=== PATIENT | male | born 1940 | race Caucasian/White ===

== ENCOUNTER 2024-09-26 07:52 | Emergency (ER) | payer MEDICARE ==
[2024-09-26 09:10] LABS: #Basophils 0.05 10x3/uL (0.0-0.2); %Basophils 0.4 % (0.0-1.0); %Lymphocytes 9.3 % (21.0-51.0); %Monocytes 6.7 % (0.0-10.0); %Neutrophils 78.1 % (42.0-75.0); Hematocrit 45.5 % (42.0-52.0); Hemoglobin 14.3 g/dL (14.0-18.0); Mean Corpuscular HGB CONC 31.4 g/dL (32.0-36.0); Mean Corpuscular Hemoglobin 29.6 pg (27.0-31.0); Mean Corpuscular Volume 94.2 fL (78.0-98.0); Mean Platelet Volume 11.7 fL (7.4-10.4); Platelet Count 199 10x3/uL (130-400); RBC Distribution Width 15.9 % (11.5-14.5); Red Blood Cell (RBC) Count 4.83 mill/uL (4.70-6.10)
[2024-09-26 09:23] LABS: ALT (SGPT) 21 U/L (8-55); AST (SGOT) 20 U/L (5-34); Albumin 3.4 g/dL (3.4-4.8); Alkaline Phosphatase 90 U/L (40-110); Anion Gap 12 mmol/L (10-20); BUN (Urea Nitrogen) 24 mg/dL (8.4-25.7); Bilirubin, Total 0.7 mg/dL (0.2-1.2); Calc. Creatinine Clearance 0 mL/min (70-130); Calcium 9.5 mg/dL (7.8-10.44); Carbon Dioxide 25 mmol/L (23-31); Chloride 108 mmol/L (98-107); Estimated GFR 79; Globulin 4.2 g/dL (2.4-3.5); Glucose 128 mg/dL (83-110); Potassium 4.6 mmol/L (3.5-5.1); Protein, Total 7.6 g/dL (5.8-8.1); Sodium 140 mmol/L (136-145)
[2024-09-26 09:27] LABS: PTT 29.5 sec (22.9-36.1)
[2024-09-26 09:28] LABS: Troponin I 0.056 ng/mL (< 0.028)
[2024-09-26] MEDS ORDERED: methylPREDNISolone Sod Succ/PF 125 MG/2 ML VIAL ONE (10:03)
[2024-09-26] MEDS ORDERED: Ipratropium/Albuterol 3 ML NEB ONE (10:12)
[2024-09-26] MEDS ORDERED: Iopamidol-370 76% 500 ML MDV (1 ML CHARGE) ONE (14:52)
== END 2024-09-26 12:32 | disposition home or self-care (01) ==
LOC: ERS 07:52
DX: J44.1 Chronic obstructive pulmonary disease with (acute) exacerbation (principal)
CPT/HCPCS: 71045; 71275; 80053; 83605; 83880; 84484; 85025; 85610; 85730; 87040; 87428; 93005; 94640; 94760; 96374; 99285; J2919; Q9967; J7620

== ENCOUNTER 2025-04-29 02:18 | Inpatient (IN) | payer MEDICARE ==
[2025-04-29 03:24] LABS: Actual Bicarbonate (HCO3v) 26.6 mEq/L (22-28); Base Excess 2.3 mEq/L (-2.0 to +3.0); Calcium, Ionized (venous) 1.04 mmol/L (1.16-1.32); Chloride (VBG) 104 mmol/L (98-106); Hematocrit-VBG 42 % (42.0-52.0); Hemoglobin (Hb) 14.2 g/dL (12.6-17.4); Potassium (VBG) 3.95 mmol/L (3.70-5.30); Sodium 139 mmol/L (133-146)
[2025-04-29 04:06] LABS: #Basophils Less than 0.03 10x3/uL (0.0-0.2); #Eosinophils 0.65 10x3/uL (0.0-0.7); #Monocytes 0.55 10x3/uL (0.11-0.59); #Neutrophils 8.13 10x3/uL (1.40-6.50); %Basophils 0.2 % (0.0-1.0); %Eosinophils 6.3 % (0.0-10.0); %Lymphocytes 8.0 % (21.0-51.0); %Monocytes 5.4 % (0.0-10.0); %Neutrophils 79.3 % (42.0-75.0); Hematocrit 40.4 % (42.0-52.0); Hemoglobin 12.7 g/dL (14.0-18.0); Mean Corpuscular Hemoglobin 28.4 pg (27.0-31.0); Mean Corpuscular Volume 90.4 fL (78.0-98.0); Platelet Count 114 10x3/uL (130-400); Red Blood Cell (RBC) Count 4.47 mill/uL (4.70-6.10); White Blood Cell (WBC) Count 10.25 10x3/uL (4.8-10.8)
[2025-04-29 04:19] LABS: ALT (SGPT) 50 U/L (Less than 45); AST (SGOT) 44 U/L (11-34); Albumin 3.1 g/dL (3.1-4.5); Alkaline Phosphatase 68 U/L (40-110); Anion Gap 13 mmol/L (10-20); BUN (Urea Nitrogen) 26 mg/dL (8.4-25.7); Bilirubin, Total 1.2 mg/dL (0.3-1.2); Calc. Creatinine Clearance 0 mL/min (70-130); Calcium 8.9 mg/dL (7.8-10.44); Carbon Dioxide 25 mmol/L (23-31); Chloride 107 mmol/L (98-107); Globulin 3.3 g/dL (2.4-3.5); Glucose 134 mg/dL (83-110); Magnesium 1.7 mg/dL (1.6-2.6); Potassium 4.0 mmol/L (3.5-5.1); Sodium 141 mmol/L (136-145)
[2025-04-29 04:45] LABS: Troponin I 0.207 ng/mL (< 0.028)
[2025-04-29] MEDS ORDERED: Ondansetron PF 4 MG/2 ML Vial IVP PRN (06:24)
[2025-04-29] MEDS ORDERED: Calcium Carbonate 500 MG ChewTAB PO PRN (06:24)
[2025-04-29] MEDS ORDERED: Electrolyte Replacement Protocol 1 EACH FS SCH (06:30)
[2025-04-29 06:36] LABS: Anisocytosis SLIGHT = 6-15 cells HPF (0-5); Macrocytosis SLIGHT = 6-15 cells HPF (0-5); Ovalocytes SLIGHT = 2-5 cells HPF (0-1); Platelet Adequacy Comment Platelets Decreased; Polychromasia SLIGHT = 2-3 cells HPF (0-2); Smudge Cells 3.0 %
[2025-04-29 07:11] LABS: Troponin I 0.215 ng/mL (< 0.028)
[2025-04-29 09:02] VITALS: BMI 25.9
[2025-04-29] MEDS: Magnesium 2 GM/50 ML(in water) 2 GM in Premix 1 BAG IVPB SCH (09:04)
[2025-04-29] MEDS: Propranolol 10 MG TAB PO SCH (11:11)
[2025-04-29] MEDS: Furosemide 20 MG (2 mL) VIAL SLOW IVP SCH (11:11)
[2025-04-29] MEDS: Lisinopril 20 MG TAB PO SCH (11:12)
[2025-04-29] MEDS ORDERED: Iopamidol-370 76% 500 ML MDV (1 ML CHARGE) ONE (11:12)
[2025-04-29] MEDS: Lisinopril 10 MG TAB PO SCH (15:18)
[2025-04-29] MEDS: Mometasone 100 MCG HFA INHALER (RT USE) INH SCH (19:42)
[2025-04-29] MEDS ORDERED: Propranolol 10 MG TAB PO SCH (21:00)
[2025-04-29] MEDS: CO Q-10 CAPSULE 100 MG PO SCH (22:05)
[2025-04-29] MEDS: Meloxicam 15 MG TAB PO SCH (22:05)
[2025-04-29] MEDS: Heparin 10,000 UNITS/ 10 ML VIAL SLOW IVP SCH (22:15)
[2025-04-30 05:41] LABS: PTT Greater than 250.0 sec (22.9-36.1)
[2025-04-30 05:58] LABS: ALT (SGPT) 35 U/L (Less than 45); AST (SGOT) 32 U/L (11-34); Albumin 2.7 g/dL (3.1-4.5); Alkaline Phosphatase 58 U/L (40-110); Anion Gap 16 mmol/L (10-20); BUN (Urea Nitrogen) 27 mg/dL (8.4-25.7); Bilirubin, Total 1.2 mg/dL (0.3-1.2); Calc. Creatinine Clearance 54 mL/min (70-130); Calcium 8.5 mg/dL (7.8-10.44); Carbon Dioxide 24 mmol/L (23-31); Chloride 105 mmol/L (98-107); Globulin 3.2 g/dL (2.4-3.5); Glucose 134 mg/dL (83-110); Potassium 4.2 mmol/L (3.5-5.1); Sodium 141 mmol/L (136-145)
[2025-04-30 06:49] LABS: Red Blood Cell (RBC) Count 4.11 mill/uL (4.70-6.10); White Blood Cell (WBC) Count 8.64 10x3/uL (4.8-10.8)
[2025-04-30 06:50] LABS: #Basophils Less than 0.03 10x3/uL (0.0-0.2); #Eosinophils 0.81 10x3/uL (0.0-0.7); #Monocytes 0.43 10x3/uL (0.11-0.59); #Neutrophils 6.58 10x3/uL (1.40-6.50); %Basophils 0.2 % (0.0-1.0); %Eosinophils 9.4 % (0.0-10.0); %Lymphocytes 8.6 % (21.0-51.0); %Monocytes 5.0 % (0.0-10.0); %Neutrophils 76.1 % (42.0-75.0); Hematocrit 37.1 % (42.0-52.0); Hemoglobin 11.9 g/dL (14.0-18.0); Mean Corpuscular Hemoglobin 29.0 pg (27.0-31.0); Mean Corpuscular Volume 90.3 fL (78.0-98.0); Platelet Count 111 10x3/uL (130-400)
[2025-04-30] MEDS: Multivitamin W/ Minerals 1 TAB PO SCH (08:47)
[2025-04-30] MEDS: Furosemide 20 MG (2 mL) VIAL SLOW IVP SCH (08:52)
[2025-04-30] MEDS ORDERED: Non-Formulary Item 1 EACH (Fluticasone/Umeclidin/Vilanter [Trelegy Ellipta 200-62.5-25] 1 INH SCH (09:00)
[2025-04-30 15:00] LABS: PTT 136.5 sec (22.9-36.1)
[2025-05-01 09:26] LABS: PTT 214.7 sec (22.9-36.1)
[2025-05-01] MEDS ORDERED: Apixaban 5 MG TAB PO SCH (13:00)
[2025-05-01] MEDS: Apixaban 5 MG TAB PO SCH ×2 (13:21→20:59)
[2025-05-02] MEDS: hydrALAZINE 20 MG/ML VIAL SLOW IVP SCH (17:56)
[2025-05-02] MEDS: Propranolol 10 MG TAB PO SCH (20:43)
[2025-05-02] MEDS: Melatonin 3 MG TAB PO PRN (22:50)
[2025-05-03 18:50] LABS: Bacteria/HPF None Seen HPF (None Seen); CAUTI Indications for Culture Alt mental st,lethar; Glucose, Urine (Dipstick) Normal (Negative); Leukocyte Negative Leu/uL (Negative); Protein, Urine (Dipstick) Negative (Neg-Trace); RBC/HPF Greater than 50 HPF (0-3); Specific Gravity, Urine 1.011 (1.002-1.036); WBC/HPF None Seen HPF (0-3)
[2025-05-03 18:51] LABS: Urine Culture Reflex No No
[2025-05-04 07:54] LABS: #Basophils Less than 0.03 10x3/uL (0.0-0.2); #Eosinophils 1.05 10x3/uL (0.0-0.7); #Monocytes 0.59 10x3/uL (0.11-0.59); #Neutrophils 5.88 10x3/uL (1.40-6.50); %Basophils 0.2 % (0.0-1.0); %Eosinophils 12.8 % (0.0-10.0); %Lymphocytes 7.9 % (21.0-51.0); %Monocytes 7.2 % (0.0-10.0); %Neutrophils 71.4 % (42.0-75.0); Hematocrit 40.4 % (42.0-52.0); Hemoglobin 12.8 g/dL (14.0-18.0); Mean Corpuscular Hemoglobin 28.4 pg (27.0-31.0); Mean Corpuscular Volume 89.6 fL (78.0-98.0); Platelet Count 159 10x3/uL (130-400); Red Blood Cell (RBC) Count 4.51 mill/uL (4.70-6.10); White Blood Cell (WBC) Count 8.23 10x3/uL (4.8-10.8)
[2025-05-04] MEDS: Acetaminophen 325 MG TAB PO PRN (08:54)
[2025-05-05] MEDS: Propranolol 10 MG TAB PO SCH (20:35)
[2025-05-06 16:11] VITALS: BMI 25.9
[2025-05-06 18:18] LABS: Bacteria/HPF Rare-Few HPF (None Seen); RBC/HPF Greater than 50 HPF (0-3)
[2025-05-07 05:24] LABS: Anion Gap 15 mmol/L (10-20); BUN (Urea Nitrogen) 25 mg/dL (8.4-25.7); Calc. Creatinine Clearance 52 mL/min (70-130); Calcium 9.5 mg/dL (7.8-10.44); Carbon Dioxide 27 mmol/L (23-31); Chloride 102 mmol/L (98-107); Glucose 131 mg/dL (83-110); Magnesium 1.9 mg/dL (1.6-2.6); Potassium 4.4 mmol/L (3.5-5.1); Sodium 140 mmol/L (136-145)
[2025-05-07] MEDS: Magnesium 2 GM/50 ML(in water) 2 GM in Premix 1 BAG IVPB SCH (07:35)
[2025-05-07 20:03] LABS: Actual Bicarbonate (HCO3a) 31.4 mEq/L (22-28); Base Excess (BEa) 6.2 mEq/L (-2.0 to +3.0); CO2 Tension 47.3 mmHg (35.0-45.0); Calcium, Ionized (arterial) 1.21 mmol/L (1.12-1.30); Hematocrit-ABG 39 % (42.0-52.0); Hemoglobin (Hb) 13.4 g/dL (14.0-18.0); O2 Tension (PaO2), arterial 62.5 mmHg (> 60.0); Potassium - ABG Lab 4.85 mmol/L (3.70-5.30); pH, Arterial 7.440 (7.35-7.45)
[2025-05-07 20:21] LABS: Puncture Site Right Radial artery
[2025-05-07 20:22] LABS: ALV-art Gradient 192.095 mmHg (0-20)
[2025-05-08] MEDS: Furosemide 20 MG TAB PO SCH (10:57)
[2025-05-08] MEDS: LevoFLOXacin 750 mg/D5W 750 MG in Premix 1 BAG IVPB SCH (10:57)
[2025-05-08] MEDS: Apixaban 5 MG TAB PO SCH (10:58)
[2025-05-09 04:37] LABS: Hematocrit 33.4 % (42.0-52.0); Hemoglobin 10.2 g/dL (14.0-18.0); Mean Corpuscular Hemoglobin 28.2 pg (27.0-31.0); Mean Corpuscular Volume 92.3 fL (78.0-98.0); Platelet Count 226 10x3/uL (130-400); Red Blood Cell (RBC) Count 3.62 mill/uL (4.70-6.10); White Blood Cell (WBC) Count 7.34 10x3/uL (4.8-10.8)
[2025-05-09 04:58] LABS: Anion Gap 12 mmol/L (10-20); BUN (Urea Nitrogen) 36 mg/dL (8.4-25.7); Calc. Creatinine Clearance 55 mL/min (70-130); Calcium 9.0 mg/dL (7.8-10.44); Carbon Dioxide 31 mmol/L (23-31); Chloride 100 mmol/L (98-107); Glucose 124 mg/dL (83-110); Potassium 3.7 mmol/L (3.5-5.1); Sodium 139 mmol/L (136-145)
[2025-05-11 04:49] LABS: Hematocrit 35.2 % (42.0-52.0); Hemoglobin 10.8 g/dL (14.0-18.0); Mean Corpuscular Hemoglobin 28.6 pg (27.0-31.0); Mean Corpuscular Volume 93.1 fL (78.0-98.0); Platelet Count 250 10x3/uL (130-400); Red Blood Cell (RBC) Count 3.78 mill/uL (4.70-6.10); White Blood Cell (WBC) Count 6.86 10x3/uL (4.8-10.8)
[2025-05-11 05:16] LABS: Anion Gap 13 mmol/L (10-20); BUN (Urea Nitrogen) 24 mg/dL (8.4-25.7); Calc. Creatinine Clearance 64 mL/min (70-130); Calcium 9.1 mg/dL (7.8-10.44); Carbon Dioxide 30 mmol/L (23-31); Chloride 106 mmol/L (98-107); Glucose 120 mg/dL (83-110); Potassium 3.6 mmol/L (3.5-5.1); Sodium 145 mmol/L (136-145)
[2025-05-12 08:03] VITALS: BP 143/75; TEMP 97.9
[2025-05-12] MEDS: Guaifenesin DM 100-10/5 ML UDCUP PO PRN (12:25)
[2025-05-13] MEDS ORDERED: LevoFLOXacin 750 mg/D5W 750 MG in Premix 1 BAG IVPB SCH (09:00)
== END 2025-05-12 13:50 | disposition hospice, home (50) | DRG 175 ==
LOC: ERS 02:18 → 2NO 06:09
PROVIDERS: ADMIT Student in an Organized Health Care Education/Training Program; ATTEND Internal Medicine
PROC: 4A033R1 Measurement of Arterial Saturation, Peripheral, Percutaneous Approach (ICD-10-PCS; principal; 2025-05-07)
PROC: 3E03329 Introduction of Other Anti-infective into Peripheral Vein, Percutaneous Approach (ICD-10-PCS; 2025-05-12)
DX: I26.99 Other pulmonary embolism without acute cor pulmonale (principal); I21.A1 Myocardial infarction type 2; J15.69 Pneumonia due to other Gram-negative bacteria; J96.21 Acute and chronic respiratory failure with hypoxia; I50.23 Acute on chronic systolic (congestive) heart failure; Z66 Do not resuscitate; Z51.5 Encounter for palliative care; I11.0 Hypertensive heart disease with heart failure; J44.9 Chronic obstructive pulmonary disease, unspecified; G47.33 Obstructive sleep apnea (adult) (pediatric); N40.0 Benign prostatic hyperplasia without lower urinary tract symptoms; I48.0 Paroxysmal atrial fibrillation; Z98.890 Other specified postprocedural states; Z88.0 Allergy status to penicillin; Z86.73 Personal history of transient ischemic attack (TIA), and cerebral infarction without residual deficits; Z95.818 Presence of other cardiac implants and grafts; Z98.41 Cataract extraction status, right eye; Z98.42 Cataract extraction status, left eye; Z87.891 Personal history of nicotine dependence; Z99.81 Dependence on supplemental oxygen; W19.XXXA Unspecified fall, initial encounter
CPT/HCPCS: 36415; 36416; 36600; 70450; 71045; 71275; 72125; 80048; 80053; 81001; 81015; 82805; 83735; 83880; 84145; 84484; 85025; 85027; 85730; 93005; 93010; 94640; 94664; J0360; J1644; J1940; J1956; J2060; J3475; J7620; Q9967